=== PATIENT | male | born 1975 | race Caucasian/White ===

== ENCOUNTER 2022-12-10 16:13 | Emergency (ER) | payer BC ==
[~2022-12-10] VITALS: Ht 177.8 cm; Wt 113.4 kg
[2022-12-10 16:25] VITALS: BP_SYST 167; PULSE 55; RESP 16; TEMP 96.4; O2SAT 98
[2022-12-10] MEDS ORDERED: KETOROLAC TROMETHAMINE 60 MG/2 ML VIAL IM ONE (17:30)
[2022-12-10 18:09] LABS: BILIRUBIN,URINE NEGATIVE (NEGATIVE); BLOOD, URINE NEGATIVE (NEGATIVE); CLARITY/URINE CLEAR (CLEAR); COLOR,URINE YELLOW (YELLOW); GLUCOSE,URINE NEGATIVE (NEGATIVE); KETONES,URINE TRACE (NEGATIVE); LEUKOCYTE ESTERASE ,URINE NEGATIVE (NEGATIVE); NITRITE, URINE NEGATIVE (NEGATIVE); PH,URINE 5.5 (5.0-8.0); PROTEIN URINE TRACE (NEGATIVE); UROBILINOGEN,URINE 0.2 (0.2-1.0)
[2022-12-10 18:20] LABS: BASOPHILS % (AUTO) 0.1 % (0.0-2.0); EOSINOPHILS % (AUTO) 0.2 % (0.0-4.0); HEMOGLOBIN 15.6 g/dL (14.0-18.0); LYMPHOCYTES # (AUTO) 2.2 K/uL (1.0-5.5); LYMPHOCYTES % (AUTO) 11.3 % (20.5-51.5); MEAN CORPUSCULAR HEMOGLOBIN 30 pg (27-31); MEAN CORPUSCULAR HGB CONC 33 % (32-36); MEAN CORPUSCULAR VOLUME 89 fL (79.0-98.0); MONOCYTES # (AUTO) 0.8 K/uL (0.0-1.0); MONOCYTES % (AUTO) 4.1 % (1.7-9.3); NEUTROPHILS # (AUTO) 16.1 K/uL (1.8-7.7); NEUTROPHILS % (AUTO) 84.3 % (40.0-70.0); PLATELET COUNT (AUTO) 301 K/uL (130-430); RED BLOOD CELL COUNT(AUTO) 5.29 MIL/uL (4.2-6.2); RED CELL DISTRIBUTION WIDTH 13.4 % (9.0-15.0); WHITE BLOOD COUNT (AUTO) 19.1 K/uL (4.8-10.8)
[2022-12-10 18:28] LABS: CALCIUM 9.5 mg/dL (8.4-11.0); CREATININE 1.38 mg/dL (0.55-1.30); POTASSIUM 3.6 mmol/L (3.5-5.1)
[2022-12-10 18:43] LABS: ALBUMIN 4.4 g/dL (3.4-4.8); TOTAL BILIRUBIN 0.4 mg/dL (0.0-1.0); TOTAL PROTEIN, SERUM 7.2 g/dL (6.4-8.3)
[2022-12-10] MEDS ORDERED: HYDR-3927 PO (19:31)
[2022-12-10] MEDS ORDERED: IBUP-1969 PO (19:31)
[2022-12-10] MEDS ORDERED: HYDROcodone/ACETAMIN 10-325 MG TAB PO ONE (19:45)
[2022-12-10] MEDS ORDERED: ONDANSETRON 4 MG ODT TAB ONE (19:51)
[2022-12-10] MEDS ORDERED: ONDANSETRON 4 MG ODT TAB PO ONE (20:00)
[2022-12-10 20:11] VITALS: BP_SYST 142; PULSE 62; RESP 17; TEMP 96.4; O2SAT 98
== END 2022-12-10 20:11 | disposition home or self-care (01) ==
LOC: SED 16:13
DX: N23 Unspecified renal colic (principal); R11.10 Vomiting, unspecified; Z79.899 Other long term (current) drug therapy
CPT/HCPCS: 99285; 74176; 96374; 80053; 82150; 83690; 85025; 36415; 76376; 83605; 81003; 82397; Q0162; J1885